=== PATIENT | male | born 1940 ===

== ENCOUNTER 2021-05-29 23:05 | Emergency (ER) | payer MEDICARE ==
[2021-05-30] MEDS: Ketorolac 30 MG/ML SDV IM ONE (00:05)
[2021-05-30] MEDS ORDERED: Sodium Chloride 0.9% 10 ML Syringe FLUSH PRN (01:30)
[2021-05-30] MEDS: Morphine 2 MG/ML SYRINGE IVPUSH ONE (03:20)
[2021-05-30] MEDS: Morphine 2 MG/ML SYRINGE IVPUSH PRN (08:00)
[2021-05-30] MEDS: Morphine 2 MG/ML SYRINGE ONE (08:02)
== END 2021-05-30 08:25 ==
LOC: LB.ED 23:05
DX: S72.141A Displaced intertrochanteric fracture of right femur, initial encounter for closed fracture (principal); E78.00 Pure hypercholesterolemia, unspecified; I10 Essential (primary) hypertension; M19.90 Unspecified osteoarthritis, unspecified site; E11.9 Type 2 diabetes mellitus without complications; Z79.82 Long term (current) use of aspirin; Z79.01 Long term (current) use of anticoagulants; Z79.84 Long term (current) use of oral hypoglycemic drugs; Z79.899 Other long term (current) drug therapy; Z20.822 Contact with and (suspected) exposure to COVID-19; W01.0XXA Fall on same level from slipping, tripping and stumbling without subsequent striking against object, initial encounter
CPT/HCPCS: 36415; 70450; 73502-RT; 80048; 81001; 85025; 85610; 93005; 96372; 96374; 96376; 99285-25; A0425; A0429; J1885; J2270; U0002

== ENCOUNTER 2021-06-02 10:32 | Inpatient (IN) | payer MEDICARE ==
[2021-06-02] MEDS ORDERED: Apixaban 2.5 MG Tab PO ONE (13:59)
[2021-06-02] MEDS ORDERED: Acetaminophen 325 MG Tab PO SCH (14:00)
[2021-06-02] MEDS: Tamsulosin 0.4 MG Cap.ER PO SCH (17:51)
[2021-06-02] MEDS: metFORMIN 500 MG Tab PO SCH (17:51)
[2021-06-02] MEDS: Acetaminophen 500 MG Tab PO SCH ×2 (17:51→21:17)
[2021-06-02] MEDS ORDERED: Acetaminophen 500 MG Tab ONE (17:51)
[2021-06-02] MEDS: Acetaminophen/oxyCODONE 325-5 MG Tab PO PRN (19:38)
[2021-06-02] MEDS: Donepezil 5 MG Tab PO SCH (19:40)
[2021-06-02] MEDS: Apixaban 2.5 MG Tab PO SCH (19:40)
[2021-06-02] MEDS: Brimonidine 0.2% Ophth Soln 5 ML Bottle EYEBOTH SCH (20:00)
[2021-06-02] MEDS: Latanoprost 0.005% Ophth Soln 2.5 ML Bottle EYEBOTH SCH (20:00)
[2021-06-02] MEDS ORDERED: Donepezil 10 MG Tab PO SCH (20:00)
[2021-06-03] MEDS: LORazepam 0.5 MG Tab PO PRN (01:02)
[2021-06-03] MEDS: Acetaminophen/oxyCODONE 325-5 MG Tab PO PRN ×2 (01:02→10:02)
[2021-06-03] MEDS: Acetaminophen 500 MG Tab PO SCH ×3 (06:16→21:12)
[2021-06-03] MEDS: atorvaSTATin 40 MG Tab PO SCH (07:42)
[2021-06-03] MEDS: Apixaban 2.5 MG Tab PO SCH ×2 (07:42→19:45)
[2021-06-03] MEDS: Pantoprazole 40 MG Tab.CR PO SCH (07:42)
[2021-06-03] MEDS: metFORMIN 500 MG Tab PO SCH ×2 (07:42→19:48)
[2021-06-03] MEDS: amLODIPine 10 MG Tab PO SCH (07:43)
[2021-06-03] MEDS: Furosemide 40 MG Tab PO SCH (07:43)
[2021-06-03] MEDS: Tamsulosin 0.4 MG Cap.ER PO SCH ×2 (07:43→19:45)
[2021-06-03] MEDS: Ascorbic Acid 500 MG Tab PO SCH (07:43)
[2021-06-03] MEDS: Brimonidine 0.2% Ophth Soln 5 ML Bottle EYEBOTH SCH ×2 (07:46→19:49)
[2021-06-03] MEDS ORDERED: Tamsulosin 0.4 MG Cap.ER PO SCH (10:00)
[2021-06-03] MEDS: traMADol 50 MG Tab PO PRN (15:45)
[2021-06-03] MEDS: Donepezil 5 MG Tab PO SCH (19:45)
[2021-06-03] MEDS: Latanoprost 0.005% Ophth Soln 2.5 ML Bottle EYEBOTH SCH (19:49)
[2021-06-04] MEDS: traMADol 50 MG Tab PO PRN ×3 (00:35→16:48)
[2021-06-04] MEDS: Acetaminophen 500 MG Tab PO SCH ×3 (06:03→20:18)
[2021-06-04] MEDS: Pantoprazole 40 MG Tab.CR PO SCH (06:04)
[2021-06-04] MEDS: amLODIPine 10 MG Tab PO SCH (08:05)
[2021-06-04] MEDS: Tamsulosin 0.4 MG Cap.ER PO SCH ×2 (08:05→18:20)
[2021-06-04] MEDS: atorvaSTATin 40 MG Tab PO SCH (08:05)
[2021-06-04] MEDS: Ascorbic Acid 500 MG Tab PO SCH (08:05)
[2021-06-04] MEDS: Apixaban 2.5 MG Tab PO SCH ×2 (08:06→20:04)
[2021-06-04] MEDS: metFORMIN 500 MG Tab PO SCH ×2 (08:06→16:49)
[2021-06-04] MEDS: Furosemide 40 MG Tab PO SCH (08:07)
[2021-06-04] MEDS: Brimonidine 0.2% Ophth Soln 5 ML Bottle EYEBOTH SCH ×2 (08:07→20:02)
[2021-06-04 10:29] LABS: HEMOGLOBIN A1C 9.3 % (< 5.7)
[2021-06-04] MEDS ORDERED: Acetaminophen 500 MG Tab ONE (12:29)
[2021-06-04] MEDS: Donepezil 5 MG Tab PO SCH (20:03)
[2021-06-04] MEDS: Acetaminophen/oxyCODONE 325-5 MG Tab PO PRN (20:04)
[2021-06-04] MEDS: Latanoprost 0.005% Ophth Soln 2.5 ML Bottle EYEBOTH SCH (20:08)
[2021-06-05] MEDS: Acetaminophen/oxyCODONE 325-5 MG Tab PO PRN ×3 (04:59→15:16)
[2021-06-05] MEDS: Acetaminophen 500 MG Tab PO SCH ×3 (05:01→20:15)
[2021-06-05] MEDS: Furosemide 40 MG Tab PO SCH (07:38)
[2021-06-05] MEDS: Ascorbic Acid 500 MG Tab PO SCH (07:38)
[2021-06-05] MEDS: atorvaSTATin 40 MG Tab PO SCH (07:38)
[2021-06-05] MEDS: amLODIPine 10 MG Tab PO SCH (07:38)
[2021-06-05] MEDS: Brimonidine 0.2% Ophth Soln 5 ML Bottle EYEBOTH SCH ×2 (07:38→20:17)
[2021-06-05] MEDS: Pantoprazole 40 MG Tab.CR PO SCH (07:39)
[2021-06-05] MEDS: metFORMIN 500 MG Tab PO SCH ×2 (07:39→17:58)
[2021-06-05] MEDS: Apixaban 2.5 MG Tab PO SCH ×2 (07:39→20:15)
[2021-06-05] MEDS: Tamsulosin 0.4 MG Cap.ER PO SCH ×2 (09:00→17:58)
[2021-06-05] MEDS: traMADol 50 MG Tab PO PRN (12:54)
[2021-06-05] MEDS: LORazepam 0.5 MG Tab PO PRN (12:54)
[2021-06-05] MEDS: Donepezil 5 MG Tab PO SCH (20:16)
[2021-06-05] MEDS: Latanoprost 0.005% Ophth Soln 2.5 ML Bottle EYEBOTH SCH (20:17)
[2021-06-06] MEDS: Acetaminophen/oxyCODONE 325-5 MG Tab PO PRN ×3 (01:43→18:18)
[2021-06-06] MEDS: LORazepam 0.5 MG Tab PO PRN ×2 (01:43→18:18)
[2021-06-06] MEDS: Pantoprazole 40 MG Tab.CR PO SCH (06:20)
[2021-06-06] MEDS: Acetaminophen 500 MG Tab PO SCH ×3 (06:20→21:00)
[2021-06-06] MEDS: traMADol 50 MG Tab PO PRN ×2 (07:36→17:26)
[2021-06-06] MEDS: Apixaban 2.5 MG Tab PO SCH ×2 (07:36→19:38)
[2021-06-06] MEDS: Ascorbic Acid 500 MG Tab PO SCH (07:36)
[2021-06-06] MEDS: atorvaSTATin 40 MG Tab PO SCH (07:37)
[2021-06-06] MEDS: Furosemide 40 MG Tab PO SCH (07:38)
[2021-06-06] MEDS: Brimonidine 0.2% Ophth Soln 5 ML Bottle EYEBOTH SCH ×2 (07:40→19:37)
[2021-06-06] MEDS: metFORMIN 500 MG Tab PO SCH ×2 (08:00→17:26)
[2021-06-06] MEDS: amLODIPine 10 MG Tab PO SCH (09:32)
[2021-06-06] MEDS: Tamsulosin 0.4 MG Cap.ER PO SCH ×2 (09:33→17:26)
[2021-06-06] MEDS: Donepezil 5 MG Tab PO SCH (19:38)
[2021-06-06] MEDS: Latanoprost 0.005% Ophth Soln 2.5 ML Bottle EYEBOTH SCH (19:39)
[2021-06-07] MEDS: traMADol 50 MG Tab PO PRN ×3 (00:03→17:32)
[2021-06-07] MEDS: Acetaminophen/oxyCODONE 325-5 MG Tab PO PRN ×3 (04:14→19:42)
[2021-06-07] MEDS: Acetaminophen 500 MG Tab PO SCH ×3 (04:16→21:02)
[2021-06-07] MEDS: amLODIPine 10 MG Tab PO SCH (08:18)
[2021-06-07] MEDS: metFORMIN 500 MG Tab PO SCH ×2 (08:18→17:31)
[2021-06-07] MEDS: Tamsulosin 0.4 MG Cap.ER PO SCH ×2 (08:19→17:31)
[2021-06-07] MEDS: Furosemide 40 MG Tab PO SCH (08:19)
[2021-06-07] MEDS: Apixaban 2.5 MG Tab PO SCH ×2 (08:20→19:41)
[2021-06-07] MEDS: atorvaSTATin 40 MG Tab PO SCH (08:20)
[2021-06-07] MEDS: Ascorbic Acid 500 MG Tab PO SCH (08:20)
[2021-06-07] MEDS: Pantoprazole 40 MG Tab.CR PO SCH (08:21)
[2021-06-07] MEDS: Brimonidine 0.2% Ophth Soln 5 ML Bottle EYEBOTH SCH ×2 (08:21→19:51)
[2021-06-07] MEDS: LORazepam 0.5 MG Tab PO PRN (11:06)
[2021-06-07] MEDS ORDERED: Tuberculin, PPD 5 Units/0.1 ML 1 ML MDV IDERM ONE (15:11)
[2021-06-07] MEDS: Donepezil 5 MG Tab PO SCH (19:40)
[2021-06-07] MEDS: Latanoprost 0.005% Ophth Soln 2.5 ML Bottle EYEBOTH SCH (19:52)
[2021-06-08] MEDS: Acetaminophen 500 MG Tab PO SCH ×3 (05:21→21:50)
[2021-06-08] MEDS: Acetaminophen/oxyCODONE 325-5 MG Tab PO PRN ×3 (05:22→19:23)
[2021-06-08] MEDS: Apixaban 2.5 MG Tab PO SCH ×2 (07:29→19:18)
[2021-06-08] MEDS: atorvaSTATin 40 MG Tab PO SCH (07:29)
[2021-06-08] MEDS: Furosemide 40 MG Tab PO SCH (07:29)
[2021-06-08] MEDS: Tamsulosin 0.4 MG Cap.ER PO SCH ×3 (07:30→17:31)
[2021-06-08] MEDS: metFORMIN 500 MG Tab PO SCH ×2 (07:30→17:25)
[2021-06-08] MEDS: amLODIPine 10 MG Tab PO SCH (07:30)
[2021-06-08] MEDS: Ascorbic Acid 500 MG Tab PO SCH (07:30)
[2021-06-08] MEDS: Pantoprazole 40 MG Tab.CR PO SCH (07:33)
[2021-06-08] MEDS: Brimonidine 0.2% Ophth Soln 5 ML Bottle EYEBOTH SCH ×2 (07:34→19:25)
[2021-06-08] MEDS: LORazepam 0.5 MG Tab PO PRN ×2 (14:37→21:49)
[2021-06-08] MEDS: Donepezil 5 MG Tab PO SCH (19:23)
[2021-06-08] MEDS: Latanoprost 0.005% Ophth Soln 2.5 ML Bottle EYEBOTH SCH (19:25)
[2021-06-08] MEDS: traMADol 50 MG Tab PO PRN (21:49)
[2021-06-09] MEDS: Acetaminophen 500 MG Tab PO SCH ×3 (04:05→20:27)
[2021-06-09] MEDS: Acetaminophen/oxyCODONE 325-5 MG Tab PO PRN ×3 (04:06→19:29)
[2021-06-09] MEDS: Furosemide 40 MG Tab PO SCH (07:59)
[2021-06-09] MEDS: Ascorbic Acid 500 MG Tab PO SCH (08:00)
[2021-06-09] MEDS: amLODIPine 10 MG Tab PO SCH (08:00)
[2021-06-09] MEDS: Pantoprazole 40 MG Tab.CR PO SCH (08:00)
[2021-06-09] MEDS: metFORMIN 500 MG Tab PO SCH ×2 (08:01→16:50)
[2021-06-09] MEDS: Tamsulosin 0.4 MG Cap.ER PO SCH ×2 (08:02→17:39)
[2021-06-09] MEDS: Apixaban 2.5 MG Tab PO SCH ×2 (08:03→19:28)
[2021-06-09] MEDS: atorvaSTATin 40 MG Tab PO SCH (08:03)
[2021-06-09] MEDS: traMADol 50 MG Tab PO PRN ×2 (09:42→16:51)
[2021-06-09] MEDS: Brimonidine 0.2% Ophth Soln 5 ML Bottle EYEBOTH SCH ×2 (09:51→19:27)
[2021-06-09] MEDS: metFORMIN 1,000 MG Tab PO SCH (16:53)
[2021-06-09] MEDS: Latanoprost 0.005% Ophth Soln 2.5 ML Bottle EYEBOTH SCH (19:27)
[2021-06-09] MEDS: Donepezil 5 MG Tab PO SCH (19:28)
[2021-06-09] MEDS: LORazepam 0.5 MG Tab PO PRN (19:29)
[2021-06-10] MEDS: Acetaminophen 500 MG Tab PO SCH ×3 (05:57→20:08)
[2021-06-10] MEDS: Acetaminophen/oxyCODONE 325-5 MG Tab PO PRN ×2 (05:58→19:44)
[2021-06-10] MEDS: Pantoprazole 40 MG Tab.CR PO SCH (05:59)
[2021-06-10] MEDS: Tamsulosin 0.4 MG Cap.ER PO SCH ×2 (08:50→17:21)
[2021-06-10] MEDS: amLODIPine 10 MG Tab PO SCH (08:50)
[2021-06-10] MEDS: metFORMIN 1,000 MG Tab PO SCH ×2 (08:50→17:21)
[2021-06-10] MEDS: atorvaSTATin 40 MG Tab PO SCH (08:50)
[2021-06-10] MEDS: Ascorbic Acid 500 MG Tab PO SCH (08:51)
[2021-06-10] MEDS: Furosemide 40 MG Tab PO SCH (08:51)
[2021-06-10] MEDS: Apixaban 2.5 MG Tab PO SCH ×2 (08:51→19:43)
[2021-06-10] MEDS: metFORMIN 500 MG Tab PO SCH ×2 (08:52→17:21)
[2021-06-10] MEDS: Brimonidine 0.2% Ophth Soln 5 ML Bottle EYEBOTH SCH ×2 (09:42→19:44)
[2021-06-10] MEDS: traMADol 50 MG Tab PO PRN (17:00)
[2021-06-10] MEDS: Latanoprost 0.005% Ophth Soln 2.5 ML Bottle EYEBOTH SCH (19:45)
[2021-06-10] MEDS: Donepezil 5 MG Tab PO SCH (19:47)
[2021-06-11] MEDS: traMADol 50 MG Tab PO PRN (02:56)
[2021-06-11] MEDS: LORazepam 0.5 MG Tab PO PRN ×2 (02:57→20:06)
[2021-06-11] MEDS: Acetaminophen 500 MG Tab PO SCH ×4 (05:59→20:03)
[2021-06-11] MEDS: Pantoprazole 40 MG Tab.CR PO SCH (06:22)
[2021-06-11] MEDS: amLODIPine 10 MG Tab PO SCH (08:17)
[2021-06-11] MEDS: Apixaban 2.5 MG Tab PO SCH ×2 (08:17→20:03)
[2021-06-11] MEDS: Tamsulosin 0.4 MG Cap.ER PO SCH ×2 (08:17→17:10)
[2021-06-11] MEDS: Furosemide 40 MG Tab PO SCH (08:17)
[2021-06-11] MEDS: metFORMIN 500 MG Tab PO SCH ×2 (08:17→16:55)
[2021-06-11] MEDS: metFORMIN 1,000 MG Tab PO SCH ×2 (08:18→16:55)
[2021-06-11] MEDS: Ascorbic Acid 500 MG Tab PO SCH (08:18)
[2021-06-11] MEDS: atorvaSTATin 40 MG Tab PO SCH (08:18)
[2021-06-11] MEDS: Brimonidine 0.2% Ophth Soln 5 ML Bottle EYEBOTH SCH ×2 (08:53→20:07)
[2021-06-11] MEDS: Acetaminophen/oxyCODONE 325-5 MG Tab PO PRN ×2 (08:54→20:06)
[2021-06-11] MEDS: Donepezil 5 MG Tab PO SCH (20:03)
[2021-06-11] MEDS: Latanoprost 0.005% Ophth Soln 2.5 ML Bottle EYEBOTH SCH (20:07)
[2021-06-12] MEDS: traMADol 50 MG Tab PO PRN (01:00)
[2021-06-12] MEDS: Acetaminophen/oxyCODONE 325-5 MG Tab PO PRN ×2 (03:08→11:23)
[2021-06-12] MEDS: Acetaminophen 500 MG Tab PO SCH ×3 (05:46→20:44)
[2021-06-12] MEDS ORDERED: Apixaban 5 MG Tab ONE (07:12)
[2021-06-12] MEDS: Pantoprazole 40 MG Tab.CR PO SCH (07:14)
[2021-06-12] MEDS: atorvaSTATin 40 MG Tab PO SCH (07:14)
[2021-06-12] MEDS: Furosemide 40 MG Tab PO SCH (07:14)
[2021-06-12] MEDS: Ascorbic Acid 500 MG Tab PO SCH (07:14)
[2021-06-12] MEDS: amLODIPine 10 MG Tab PO SCH (07:14)
[2021-06-12] MEDS: Apixaban 2.5 MG Tab PO SCH ×2 (07:15→19:27)
[2021-06-12] MEDS: metFORMIN 1,000 MG Tab PO SCH (10:51)
[2021-06-12] MEDS: Tamsulosin 0.4 MG Cap.ER PO SCH ×2 (10:51→17:17)
[2021-06-12] MEDS: metFORMIN 500 MG Tab PO SCH ×2 (10:51→17:17)
[2021-06-12] MEDS: Brimonidine 0.2% Ophth Soln 5 ML Bottle EYEBOTH SCH ×2 (11:23→19:26)
[2021-06-12] MEDS: Donepezil 5 MG Tab PO SCH (19:27)
[2021-06-12] MEDS: Latanoprost 0.005% Ophth Soln 2.5 ML Bottle EYEBOTH SCH (19:27)
[2021-06-13] MEDS: LORazepam 0.5 MG Tab PO PRN (00:13)
[2021-06-13] MEDS: Acetaminophen/oxyCODONE 325-5 MG Tab PO PRN ×3 (00:14→16:50)
[2021-06-13] MEDS: Acetaminophen 500 MG Tab PO SCH ×3 (04:21→20:26)
[2021-06-13] MEDS: Pantoprazole 40 MG Tab.CR PO SCH (06:50)
[2021-06-13] MEDS: atorvaSTATin 40 MG Tab PO SCH (07:59)
[2021-06-13] MEDS: Furosemide 40 MG Tab PO SCH (08:00)
[2021-06-13] MEDS: Ascorbic Acid 500 MG Tab PO SCH (08:00)
[2021-06-13] MEDS: Tamsulosin 0.4 MG Cap.ER PO SCH ×2 (08:01→17:02)
[2021-06-13] MEDS: metFORMIN 500 MG Tab PO SCH ×3 (08:21→17:02)
[2021-06-13] MEDS: Brimonidine 0.2% Ophth Soln 5 ML Bottle EYEBOTH SCH ×2 (08:22→19:25)
[2021-06-13] MEDS: amLODIPine 10 MG Tab PO SCH (08:22)
[2021-06-13] MEDS: Apixaban 2.5 MG Tab PO SCH ×2 (08:22→19:23)
[2021-06-13] MEDS: traMADol 50 MG Tab PO PRN (14:27)
[2021-06-13] MEDS ORDERED: Glucagon,Human Recombinant 1 MG Vial IM PRN (16:16)
[2021-06-13] MEDS ORDERED: 50% Dextrose in Water 50 ML Syringe IVPUSH PRN (16:16)
[2021-06-13] MEDS: Donepezil 5 MG Tab PO SCH (19:23)
[2021-06-13] MEDS: traZODone 100 MG Tab PO SCH (19:24)
[2021-06-13] MEDS: Latanoprost 0.005% Ophth Soln 2.5 ML Bottle EYEBOTH SCH (20:30)
[2021-06-13] MEDS: Insulin Regular, Human 100 Units/ML 3 ML Vial SUBCUT SCH (20:34)
[2021-06-14] MEDS: Acetaminophen 500 MG Tab PO SCH ×3 (05:26→20:01)
[2021-06-14] MEDS: Pantoprazole 40 MG Tab.CR PO SCH (06:03)
[2021-06-14] MEDS: Insulin Regular, Human 100 Units/ML 3 ML Vial SUBCUT SCH ×3 (08:38→17:13)
[2021-06-14] MEDS: Apixaban 2.5 MG Tab PO SCH ×2 (08:39→20:03)
[2021-06-14] MEDS: metFORMIN 500 MG Tab PO SCH ×3 (08:39→17:11)
[2021-06-14] MEDS: Ascorbic Acid 500 MG Tab PO SCH (08:39)
[2021-06-14] MEDS: Furosemide 40 MG Tab PO SCH (08:40)
[2021-06-14] MEDS: Tamsulosin 0.4 MG Cap.ER PO SCH ×2 (08:40→17:10)
[2021-06-14] MEDS: amLODIPine 10 MG Tab PO SCH (08:40)
[2021-06-14] MEDS: atorvaSTATin 40 MG Tab PO SCH (08:41)
[2021-06-14] MEDS: Brimonidine 0.2% Ophth Soln 5 ML Bottle EYEBOTH SCH ×2 (08:41→20:02)
[2021-06-14] MEDS: Donepezil 5 MG Tab PO SCH (20:01)
[2021-06-14] MEDS: traZODone 100 MG Tab PO SCH (20:01)
[2021-06-14] MEDS: Latanoprost 0.005% Ophth Soln 2.5 ML Bottle EYEBOTH SCH (20:01)
[2021-06-15] MEDS: Melatonin 3 MG Tab PO PRN ×2 (00:58→19:36)
[2021-06-15] MEDS: Acetaminophen/oxyCODONE 325-5 MG Tab PO PRN ×3 (00:58→19:38)
[2021-06-15] MEDS: Acetaminophen 500 MG Tab PO SCH ×3 (06:35→21:00)
[2021-06-15] MEDS: Furosemide 40 MG Tab PO SCH (08:01)
[2021-06-15] MEDS: Ascorbic Acid 500 MG Tab PO SCH (08:01)
[2021-06-15] MEDS: atorvaSTATin 40 MG Tab PO SCH (08:01)
[2021-06-15] MEDS: Pantoprazole 40 MG Tab.CR PO SCH (08:02)
[2021-06-15] MEDS: Tamsulosin 0.4 MG Cap.ER PO SCH ×2 (08:02→17:51)
[2021-06-15] MEDS: Apixaban 2.5 MG Tab PO SCH ×2 (08:02→19:36)
[2021-06-15] MEDS: amLODIPine 10 MG Tab PO SCH (08:04)
[2021-06-15] MEDS: metFORMIN 500 MG Tab PO SCH ×3 (08:04→17:50)
[2021-06-15] MEDS: Brimonidine 0.2% Ophth Soln 5 ML Bottle EYEBOTH SCH ×2 (08:06→19:35)
[2021-06-15] MEDS: Insulin Regular, Human 100 Units/ML 3 ML Vial SUBCUT SCH ×2 (08:06→17:07)
[2021-06-15] MEDS: traMADol 50 MG Tab PO PRN (14:35)
[2021-06-15] MEDS: Latanoprost 0.005% Ophth Soln 2.5 ML Bottle EYEBOTH SCH (19:35)
[2021-06-15] MEDS: Donepezil 5 MG Tab PO SCH (19:37)
[2021-06-15] MEDS: traZODone 100 MG Tab PO SCH (19:38)
[2021-06-16] MEDS: Acetaminophen 500 MG Tab PO SCH ×5 (05:00→20:04)
[2021-06-16] MEDS: Pantoprazole 40 MG Tab.CR PO SCH (06:31)
[2021-06-16] MEDS: Brimonidine 0.2% Ophth Soln 5 ML Bottle EYEBOTH SCH ×2 (08:03→20:03)
[2021-06-16] MEDS: Furosemide 40 MG Tab PO SCH (08:03)
[2021-06-16] MEDS: metFORMIN 500 MG Tab PO SCH ×3 (08:03→18:22)
[2021-06-16] MEDS: Ascorbic Acid 500 MG Tab PO SCH (08:04)
[2021-06-16] MEDS: amLODIPine 10 MG Tab PO SCH (08:04)
[2021-06-16] MEDS: Tamsulosin 0.4 MG Cap.ER PO SCH ×2 (08:04→18:24)
[2021-06-16] MEDS: Apixaban 2.5 MG Tab PO SCH ×2 (08:04→19:25)
[2021-06-16] MEDS: Insulin Regular, Human 100 Units/ML 3 ML Vial SUBCUT SCH ×2 (08:05→18:20)
[2021-06-16] MEDS: atorvaSTATin 40 MG Tab PO SCH (08:05)
[2021-06-16] MEDS: Acetaminophen/oxyCODONE 325-5 MG Tab PO PRN ×2 (10:55→19:25)
[2021-06-16] MEDS: traMADol 50 MG Tab PO PRN (13:27)
[2021-06-16] MEDS: Melatonin 3 MG Tab PO PRN (19:19)
[2021-06-16] MEDS: traZODone 100 MG Tab PO SCH (19:20)
[2021-06-16] MEDS: Donepezil 5 MG Tab PO SCH (19:22)
[2021-06-16] MEDS: Latanoprost 0.005% Ophth Soln 2.5 ML Bottle EYEBOTH SCH (20:01)
[2021-06-17] MEDS: Acetaminophen 500 MG Tab PO SCH ×3 (06:32→21:41)
[2021-06-17] MEDS: Pantoprazole 40 MG Tab.CR PO SCH (06:35)
[2021-06-17] MEDS: Furosemide 40 MG Tab PO SCH (08:17)
[2021-06-17] MEDS: Tamsulosin 0.4 MG Cap.ER PO SCH ×2 (08:17→17:16)
[2021-06-17] MEDS: metFORMIN 500 MG Tab PO SCH ×3 (08:17→17:17)
[2021-06-17] MEDS: atorvaSTATin 40 MG Tab PO SCH (08:17)
[2021-06-17] MEDS: Ascorbic Acid 500 MG Tab PO SCH (08:17)
[2021-06-17] MEDS: Apixaban 2.5 MG Tab PO SCH ×2 (08:17→19:49)
[2021-06-17] MEDS: Insulin Regular, Human 100 Units/ML 3 ML Vial SUBCUT SCH ×2 (08:18→17:14)
[2021-06-17] MEDS: amLODIPine 10 MG Tab PO SCH (08:20)
[2021-06-17] MEDS: Brimonidine 0.2% Ophth Soln 5 ML Bottle EYEBOTH SCH ×2 (08:20→19:50)
[2021-06-17] MEDS: Donepezil 5 MG Tab PO SCH (19:46)
[2021-06-17] MEDS: Acetaminophen/oxyCODONE 325-5 MG Tab PO PRN (19:46)
[2021-06-17] MEDS: traZODone 100 MG Tab PO SCH (19:48)
[2021-06-17] MEDS: Melatonin 3 MG Tab PO PRN (19:48)
[2021-06-17] MEDS: Latanoprost 0.005% Ophth Soln 2.5 ML Bottle EYEBOTH SCH (19:50)
[2021-06-18] MEDS: Acetaminophen 500 MG Tab PO SCH ×3 (05:44→21:00)
[2021-06-18] MEDS: Pantoprazole 40 MG Tab.CR PO SCH (07:38)
[2021-06-18] MEDS: amLODIPine 10 MG Tab PO SCH (07:40)
[2021-06-18] MEDS: Furosemide 40 MG Tab PO SCH (07:40)
[2021-06-18] MEDS: Apixaban 2.5 MG Tab PO SCH ×2 (07:41→19:29)
[2021-06-18] MEDS: metFORMIN 500 MG Tab PO SCH ×3 (07:42→17:08)
[2021-06-18] MEDS: atorvaSTATin 40 MG Tab PO SCH (07:43)
[2021-06-18] MEDS: Ascorbic Acid 500 MG Tab PO SCH (07:43)
[2021-06-18] MEDS: Acetaminophen/oxyCODONE 325-5 MG Tab PO PRN ×4 (07:44→19:50)
[2021-06-18] MEDS: Brimonidine 0.2% Ophth Soln 5 ML Bottle EYEBOTH SCH ×2 (07:44→19:23)
[2021-06-18] MEDS: Insulin Regular, Human 100 Units/ML 3 ML Vial SUBCUT SCH ×2 (07:54→17:07)
[2021-06-18] MEDS: Tamsulosin 0.4 MG Cap.ER PO SCH ×2 (09:00→17:08)
[2021-06-18] MEDS: Latanoprost 0.005% Ophth Soln 2.5 ML Bottle EYEBOTH SCH (19:23)
[2021-06-18] MEDS: Melatonin 3 MG Tab PO PRN (19:25)
[2021-06-18] MEDS: Donepezil 5 MG Tab PO SCH (19:26)
[2021-06-18] MEDS: traZODone 100 MG Tab PO SCH (19:30)
[2021-06-19] MEDS: Acetaminophen 500 MG Tab PO SCH ×3 (05:31→20:27)
[2021-06-19] MEDS ORDERED: Acetaminophen 500 MG Tab ONE (05:41)
[2021-06-19] MEDS: Pantoprazole 40 MG Tab.CR PO SCH (06:00)
[2021-06-19] MEDS: metFORMIN 500 MG Tab PO SCH ×3 (08:14→17:36)
[2021-06-19] MEDS: Apixaban 2.5 MG Tab PO SCH ×2 (08:14→20:27)
[2021-06-19] MEDS: amLODIPine 10 MG Tab PO SCH (08:14)
[2021-06-19] MEDS: Tamsulosin 0.4 MG Cap.ER PO SCH ×2 (08:14→17:36)
[2021-06-19] MEDS: atorvaSTATin 40 MG Tab PO SCH (08:15)
[2021-06-19] MEDS: Furosemide 40 MG Tab PO SCH (08:15)
[2021-06-19] MEDS: Brimonidine 0.2% Ophth Soln 5 ML Bottle EYEBOTH SCH ×2 (08:16→20:26)
[2021-06-19] MEDS: Insulin Regular, Human 100 Units/ML 3 ML Vial SUBCUT SCH ×2 (08:16→17:35)
[2021-06-19] MEDS: Ascorbic Acid 500 MG Tab PO SCH (12:18)
[2021-06-19] MEDS: Acetaminophen/oxyCODONE 325-5 MG Tab PO PRN (16:51)
[2021-06-19] MEDS: Latanoprost 0.005% Ophth Soln 2.5 ML Bottle EYEBOTH SCH (20:26)
[2021-06-19] MEDS: Donepezil 5 MG Tab PO SCH (20:27)
[2021-06-19] MEDS: Melatonin 3 MG Tab PO PRN (20:27)
[2021-06-19] MEDS: traZODone 100 MG Tab PO SCH (20:27)
[2021-06-20] MEDS: Acetaminophen/oxyCODONE 325-5 MG Tab PO PRN ×2 (02:30→19:48)
[2021-06-20] MEDS: Acetaminophen 500 MG Tab PO SCH ×3 (05:59→21:00)
[2021-06-20] MEDS: Pantoprazole 40 MG Tab.CR PO SCH (06:01)
[2021-06-20] MEDS: Brimonidine 0.2% Ophth Soln 5 ML Bottle EYEBOTH SCH ×2 (08:19→19:46)
[2021-06-20] MEDS: Tamsulosin 0.4 MG Cap.ER PO SCH ×2 (08:20→17:50)
[2021-06-20] MEDS: Insulin Regular, Human 100 Units/ML 3 ML Vial SUBCUT SCH ×2 (08:20→17:50)
[2021-06-20] MEDS: Furosemide 40 MG Tab PO SCH (08:20)
[2021-06-20] MEDS: amLODIPine 10 MG Tab PO SCH (08:21)
[2021-06-20] MEDS: Ascorbic Acid 500 MG Tab PO SCH (08:21)
[2021-06-20] MEDS: metFORMIN 500 MG Tab PO SCH ×3 (08:21→17:50)
[2021-06-20] MEDS: Apixaban 2.5 MG Tab PO SCH ×2 (08:21→19:48)
[2021-06-20] MEDS: atorvaSTATin 40 MG Tab PO SCH (08:21)
[2021-06-20] MEDS: Latanoprost 0.005% Ophth Soln 2.5 ML Bottle EYEBOTH SCH (19:45)
[2021-06-20] MEDS: Melatonin 3 MG Tab PO PRN (19:46)
[2021-06-20] MEDS: traZODone 100 MG Tab PO SCH (19:47)
[2021-06-20] MEDS: Donepezil 5 MG Tab PO SCH (19:48)
[2021-06-21] MEDS: Acetaminophen 500 MG Tab PO SCH ×3 (05:53→20:10)
[2021-06-21] MEDS: Pantoprazole 40 MG Tab.CR PO SCH (06:11)
[2021-06-21] MEDS: atorvaSTATin 40 MG Tab PO SCH (07:57)
[2021-06-21] MEDS: metFORMIN 500 MG Tab PO SCH ×3 (07:57→17:03)
[2021-06-21] MEDS: Apixaban 2.5 MG Tab PO SCH ×2 (07:57→19:16)
[2021-06-21] MEDS: Furosemide 40 MG Tab PO SCH (07:57)
[2021-06-21] MEDS: amLODIPine 10 MG Tab PO SCH (07:57)
[2021-06-21] MEDS: Insulin Regular, Human 100 Units/ML 3 ML Vial SUBCUT SCH ×2 (07:59→16:43)
[2021-06-21] MEDS: Brimonidine 0.2% Ophth Soln 5 ML Bottle EYEBOTH SCH ×2 (07:59→19:19)
[2021-06-21] MEDS: Ascorbic Acid 500 MG Tab PO SCH (07:59)
[2021-06-21] MEDS: Tamsulosin 0.4 MG Cap.ER PO SCH ×2 (08:04→17:03)
[2021-06-21] MEDS: Donepezil 5 MG Tab PO SCH (19:16)
[2021-06-21] MEDS: traZODone 100 MG Tab PO SCH (19:17)
[2021-06-21] MEDS: Acetaminophen/oxyCODONE 325-5 MG Tab PO PRN (19:17)
[2021-06-21] MEDS: Latanoprost 0.005% Ophth Soln 2.5 ML Bottle EYEBOTH SCH (19:19)
[2021-06-22] MEDS: Acetaminophen 500 MG Tab PO SCH ×4 (05:00→20:37)
[2021-06-22] MEDS: Ascorbic Acid 500 MG Tab PO SCH (08:06)
[2021-06-22] MEDS: metFORMIN 500 MG Tab PO SCH ×3 (08:07→17:08)
[2021-06-22] MEDS: Pantoprazole 40 MG Tab.CR PO SCH (08:09)
[2021-06-22] MEDS: Furosemide 40 MG Tab PO SCH (08:09)
[2021-06-22] MEDS: atorvaSTATin 40 MG Tab PO SCH (08:09)
[2021-06-22] MEDS: Tamsulosin 0.4 MG Cap.ER PO SCH ×2 (08:09→17:08)
[2021-06-22] MEDS: Apixaban 2.5 MG Tab PO SCH ×2 (08:09→19:48)
[2021-06-22] MEDS: Brimonidine 0.2% Ophth Soln 5 ML Bottle EYEBOTH SCH ×2 (08:10→19:51)
[2021-06-22] MEDS: amLODIPine 10 MG Tab PO SCH (08:49)
[2021-06-22] MEDS: Insulin Regular, Human 100 Units/ML 3 ML Vial SUBCUT SCH ×2 (08:53→16:56)
[2021-06-22] MEDS: traZODone 100 MG Tab PO SCH (19:47)
[2021-06-22] MEDS: Donepezil 5 MG Tab PO SCH (19:47)
[2021-06-22] MEDS: Acetaminophen/oxyCODONE 325-5 MG Tab PO PRN (19:52)
[2021-06-22] MEDS: Latanoprost 0.005% Ophth Soln 2.5 ML Bottle EYEBOTH SCH (19:52)
[2021-06-23] MEDS: Acetaminophen 500 MG Tab PO SCH ×3 (06:08→21:32)
[2021-06-23] MEDS: Pantoprazole 40 MG Tab.CR PO SCH (06:10)
[2021-06-23] MEDS: Brimonidine 0.2% Ophth Soln 5 ML Bottle EYEBOTH SCH ×2 (08:06→21:33)
[2021-06-23] MEDS: Insulin Regular, Human 100 Units/ML 3 ML Vial SUBCUT SCH ×3 (08:07→17:30)
[2021-06-23] MEDS: traMADol 50 MG Tab PO PRN (08:09)
[2021-06-23] MEDS: Ascorbic Acid 500 MG Tab PO SCH (08:09)
[2021-06-23] MEDS: metFORMIN 500 MG Tab PO SCH ×3 (08:10→17:32)
[2021-06-23] MEDS: Tamsulosin 0.4 MG Cap.ER PO SCH ×2 (08:10→17:31)
[2021-06-23] MEDS: atorvaSTATin 40 MG Tab PO SCH (08:11)
[2021-06-23] MEDS: amLODIPine 10 MG Tab PO SCH (08:11)
[2021-06-23] MEDS: Furosemide 40 MG Tab PO SCH (08:12)
[2021-06-23] MEDS: Apixaban 2.5 MG Tab PO SCH ×2 (08:13→21:33)
[2021-06-23] MEDS: Melatonin 3 MG Tab PO PRN (21:33)
[2021-06-23] MEDS: Donepezil 5 MG Tab PO SCH (21:33)
[2021-06-23] MEDS: Latanoprost 0.005% Ophth Soln 2.5 ML Bottle EYEBOTH SCH (21:33)
[2021-06-23] MEDS: traZODone 100 MG Tab PO SCH (21:34)
[2021-06-24] MEDS: Acetaminophen/oxyCODONE 325-5 MG Tab PO PRN (00:17)
[2021-06-24] MEDS: Acetaminophen 500 MG Tab PO SCH ×3 (05:30→20:22)
[2021-06-24] MEDS: Pantoprazole 40 MG Tab.CR PO SCH ×2 (05:30→07:21)
[2021-06-24] MEDS: Insulin Regular, Human 100 Units/ML 3 ML Vial SUBCUT SCH ×2 (07:35→18:10)
[2021-06-24] MEDS: Brimonidine 0.2% Ophth Soln 5 ML Bottle EYEBOTH SCH ×2 (07:36→20:21)
[2021-06-24] MEDS: metFORMIN 500 MG Tab PO SCH ×3 (07:40→18:12)
[2021-06-24] MEDS: Ascorbic Acid 500 MG Tab PO SCH (07:42)
[2021-06-24] MEDS: atorvaSTATin 40 MG Tab PO SCH (07:43)
[2021-06-24] MEDS: Furosemide 40 MG Tab PO SCH (07:43)
[2021-06-24] MEDS: Apixaban 2.5 MG Tab PO SCH ×2 (07:43→20:21)
[2021-06-24] MEDS: amLODIPine 10 MG Tab PO SCH (07:45)
[2021-06-24] MEDS: traMADol 50 MG Tab PO PRN ×2 (07:46→13:33)
[2021-06-24] MEDS: Tamsulosin 0.4 MG Cap.ER PO SCH ×2 (09:50→18:12)
[2021-06-24] MEDS: Donepezil 5 MG Tab PO SCH (20:21)
[2021-06-24] MEDS: Latanoprost 0.005% Ophth Soln 2.5 ML Bottle EYEBOTH SCH (20:23)
[2021-06-24] MEDS: traZODone 100 MG Tab PO SCH (20:23)
[2021-06-24] MEDS ORDERED: Ondansetron 4 MG Tab.DIS ONE (20:43)
[2021-06-24] MEDS ORDERED: Ondansetron 4 MG Tab.DIS PO ONE (20:45)
[2021-06-25] MEDS: Acetaminophen 500 MG Tab PO SCH ×3 (05:20→20:00)
[2021-06-25] MEDS: Pantoprazole 40 MG Tab.CR PO SCH (06:12)
[2021-06-25] MEDS: Brimonidine 0.2% Ophth Soln 5 ML Bottle EYEBOTH SCH ×2 (08:30→19:32)
[2021-06-25] MEDS: metFORMIN 500 MG Tab PO SCH ×3 (08:34→17:11)
[2021-06-25] MEDS: atorvaSTATin 40 MG Tab PO SCH (08:34)
[2021-06-25] MEDS: Ascorbic Acid 500 MG Tab PO SCH (08:34)
[2021-06-25] MEDS: amLODIPine 10 MG Tab PO SCH (08:35)
[2021-06-25] MEDS: Tamsulosin 0.4 MG Cap.ER PO SCH ×2 (08:35→17:11)
[2021-06-25] MEDS: Apixaban 2.5 MG Tab PO SCH ×2 (08:35→20:00)
[2021-06-25] MEDS: Furosemide 40 MG Tab PO SCH (08:35)
[2021-06-25] MEDS: Insulin Regular, Human 100 Units/ML 3 ML Vial SUBCUT SCH ×4 (08:42→17:12)
[2021-06-25] MEDS: traZODone 100 MG Tab PO SCH (19:59)
[2021-06-25] MEDS: Latanoprost 0.005% Ophth Soln 2.5 ML Bottle EYEBOTH SCH (20:00)
[2021-06-25] MEDS: Donepezil 5 MG Tab PO SCH (20:00)
[2021-06-25] MEDS: Melatonin 3 MG Tab PO PRN (20:00)
[2021-06-26] MEDS: Pantoprazole 40 MG Tab.CR PO SCH (06:20)
[2021-06-26] MEDS: Acetaminophen 500 MG Tab PO SCH ×2 (06:20→13:32)
[2021-06-26] MEDS ORDERED: metFORMIN 1,000 MG Tab ONE (08:08)
[2021-06-26] MEDS: Furosemide 40 MG Tab PO SCH (08:10)
[2021-06-26] MEDS: amLODIPine 10 MG Tab PO SCH (08:10)
[2021-06-26] MEDS: Apixaban 2.5 MG Tab PO SCH (08:43)
[2021-06-26] MEDS: Brimonidine 0.2% Ophth Soln 5 ML Bottle EYEBOTH SCH (08:43)
[2021-06-26] MEDS: metFORMIN 500 MG Tab PO SCH ×2 (08:44→13:39)
[2021-06-26] MEDS: atorvaSTATin 40 MG Tab PO SCH (08:44)
[2021-06-26] MEDS: Ascorbic Acid 500 MG Tab PO SCH (08:45)
[2021-06-26] MEDS: Tamsulosin 0.4 MG Cap.ER PO SCH ×2 (08:45→08:53)
[2021-06-26] MEDS: Insulin Regular, Human 100 Units/ML 3 ML Vial SUBCUT SCH ×2 (08:49→13:36)
[2021-06-26] MEDS: Acetaminophen/oxyCODONE 325-5 MG Tab PO PRN ×2 (13:32)
== END 2021-06-26 13:30 | DRG 561 ==
LOC: LB.MS 11:15
PROVIDERS: ADMIT Physician Assistant; ATTEND Physician Assistant
DX: S72.009D Fracture of unspecified part of neck of unspecified femur, subsequent encounter for closed fracture with routine healing (principal); H91.90 Unspecified hearing loss, unspecified ear; H54.7 Unspecified visual loss; E78.00 Pure hypercholesterolemia, unspecified; M19.90 Unspecified osteoarthritis, unspecified site; R53.1 Weakness; E11.9 Type 2 diabetes mellitus without complications; Z87.891 Personal history of nicotine dependence; Z79.82 Long term (current) use of aspirin; Z79.01 Long term (current) use of anticoagulants; Z79.84 Long term (current) use of oral hypoglycemic drugs; R73.9 Hyperglycemia, unspecified; Z20.822 Contact with and (suspected) exposure to COVID-19
CPT/HCPCS: 36415; 71045; 80048; 81001; 82947; 83036; 85025; 86580; 87070; 97110-GP; 97116-GP; 97161-GP; 97165-GO; 97530-GO; 97530-GP; 97535-GO; A9270-GY; J1815-GY; Q0162; U0002

== ENCOUNTER 2022-08-29 10:41 | Inpatient (IN) | payer MEDICARE, MEDICAID ==
[2022-08-29] MEDS ORDERED: Sodium Chloride 0.9% 1,000 ML IV ONE (11:27)
[2022-08-29] MEDS ORDERED: Ondansetron 4 MG/2 ML SDV IVPUSH ONE (11:28)
[2022-08-29] MEDS ORDERED: Nitroglycerin 0.4 MG Tab.SL SL ONE (11:57)
[2022-08-29] MEDS ORDERED: HYDROmorphone 2 MG/ML Syringe IVPUSH ONE (11:58)
[2022-08-29] MEDS ORDERED: cefTRIAXone 1 GM in Sodium Chloride 0.9% 50 ML IV ONE (12:06)
[2022-08-29] MEDS ORDERED: HYDROmorphone 2 MG/ML Syringe ONE (12:10)
[2022-08-29] MEDS ORDERED: Azithromycin 500 MG in Sodium Chloride 0.9% 250 ML IV ONE (12:10)
[2022-08-29] MEDS ORDERED: cefTRIAXone 1 GM Vial ONE (12:22)
[2022-08-29] MEDS ORDERED: ALUM HYDROX PO PRN (14:16)
[2022-08-29] MEDS ORDERED: MAG HYDROX PO PRN (14:16)
[2022-08-29] MEDS ORDERED: SIMETH PO PRN (14:16)
[2022-08-29] MEDS ORDERED: Acetaminophen 325 MG Tab PO PRN (15:59)
[2022-08-29] MEDS ORDERED: Albuterol/Ipratropium 3.0-0.5 MG/3 ML Neb Soln NEB PRN (16:00)
[2022-08-29] MEDS ORDERED: Aluminum Hydroxide/Magnesium Hydroxide/Simethicone Susp 30 ML Cup PO PRN (17:29)
[2022-08-29] MEDS ORDERED: TAMSULOSIN HCL 0.4 MG PO SCH (17:30)
[2022-08-29] MEDS: Tamsulosin 0.4 MG Cap.ER PO SCH (17:45)
[2022-08-29] MEDS: Insulin Glargine,Human Rec. Analog 100 Units/ML 3 ML Pen SUBCUT SCH (19:27)
[2022-08-29] MEDS: Donepezil 5 MG Tab PO SCH (19:28)
[2022-08-29] MEDS: metFORMIN 1,000 MG Tab PO SCH (19:28)
[2022-08-29] MEDS: atorvaSTATin 40 MG Tab PO SCH (19:28)
[2022-08-29] MEDS: traZODone 50 MG Tab PO SCH (19:29)
[2022-08-29] MEDS: Brimonidine 0.2% Ophth Soln 5 ML Bottle EYEBOTH SCH (19:29)
[2022-08-29] MEDS: Apixaban 2.5 MG Tab PO SCH (19:29)
[2022-08-29] MEDS: Latanoprost 0.005% Ophth Soln 2.5 ML Bottle EYEBOTH SCH (19:37)
[2022-08-29] MEDS ORDERED: Non-Formulary Medication 1 Each (Apixaban [Eliquis] 2.5 MG Tablet) PO SCH (20:00)
[2022-08-29] MEDS ORDERED: Non-Formulary Medication 1 Each (Insulin Detemir [Levemir Flexpen] 100 UNIT/ML Insuln.Pen) SQ SCH (20:00)
[2022-08-29] MEDS ORDERED: DONEPEZIL HCL 10 MG PO SCH (20:00)
[2022-08-29] MEDS ORDERED: Non-Formulary Medication 1 Each (Metformin [Glucophage] 500 MG Tablet) PO SCH (20:00)
[2022-08-29] MEDS ORDERED: TRAZODONE HCL 50 MG PO SCH (20:00)
[2022-08-29] MEDS ORDERED: BRIMONIDINE EYEBOTH SCH (20:00)
[2022-08-30] MEDS ORDERED: 50% Dextrose in Water 50 ML Syringe IVPUSH ONE (07:50)
[2022-08-30] MEDS: Pantoprazole 40 MG Tab.CR PO SCH (07:53)
[2022-08-30] MEDS: Apixaban 2.5 MG Tab PO SCH ×2 (07:53→21:02)
[2022-08-30] MEDS: Furosemide 40 MG Tab PO SCH ×2 (07:54→16:33)
[2022-08-30] MEDS: Azithromycin 250 MG Tab PO SCH (07:55)
[2022-08-30] MEDS ORDERED: Non-Formulary Medication 1 Each (Insulin Detemir [Levemir Flexpen] 100 UNIT/ML Insuln.Pen) SQ SCH (08:00)
[2022-08-30] MEDS ORDERED: FUROSEMIDE 20 MG PO SCH (08:00)
[2022-08-30] MEDS: Insulin Glargine,Human Rec. Analog 100 Units/ML 3 ML Pen SUBCUT SCH ×2 (08:06→21:03)
[2022-08-30] MEDS: Brimonidine 0.2% Ophth Soln 5 ML Bottle EYEBOTH SCH ×2 (08:07→21:04)
[2022-08-30] MEDS: Tamsulosin 0.4 MG Cap.ER PO SCH ×2 (08:14→16:33)
[2022-08-30] MEDS: metFORMIN 1,000 MG Tab PO SCH ×2 (09:05→21:05)
[2022-08-30] MEDS: cefTRIAXone 2 GM in Sodium Chloride 0.9% 50 ML IV SCH (09:11)
[2022-08-30] MEDS ORDERED: metFORMIN 500 MG Tab PO SCH (12:00)
[2022-08-30] MEDS ORDERED: Non-Formulary Medication 1 Each (Metformin [Glucophage] 500 MG Tablet) PO SCH (12:00)
[2022-08-30] MEDS ORDERED: Furosemide 40 MG Tab ONE (16:31)
[2022-08-30] MEDS: atorvaSTATin 40 MG Tab PO SCH (21:02)
[2022-08-30] MEDS: Donepezil 5 MG Tab PO SCH (21:02)
[2022-08-30] MEDS: traZODone 50 MG Tab PO SCH (21:03)
[2022-08-30] MEDS: Latanoprost 0.005% Ophth Soln 2.5 ML Bottle EYEBOTH SCH (21:05)
[2022-08-31] MEDS ORDERED: Pantoprazole 40 MG Tab.CR ONE (08:09)
[2022-08-31] MEDS: Apixaban 2.5 MG Tab PO SCH (08:12)
[2022-08-31] MEDS: Azithromycin 250 MG Tab PO SCH (08:12)
[2022-08-31] MEDS: Insulin Glargine,Human Rec. Analog 100 Units/ML 3 ML Pen SUBCUT SCH (08:12)
[2022-08-31] MEDS: metFORMIN 1,000 MG Tab PO SCH (08:12)
[2022-08-31] MEDS: Brimonidine 0.2% Ophth Soln 5 ML Bottle EYEBOTH SCH (08:13)
[2022-08-31] MEDS: Pantoprazole 40 MG Tab.CR PO SCH (08:13)
[2022-08-31] MEDS: Furosemide 40 MG Tab PO SCH (08:13)
[2022-08-31] MEDS ORDERED: Tamsulosin 0.4 MG Cap.ER ONE (08:16)
[2022-08-31] MEDS ORDERED: cefTRIAXone 2 GM Vial ONE (08:17)
[2022-08-31] MEDS: Tamsulosin 0.4 MG Cap.ER PO SCH (08:17)
[2022-08-31] MEDS: cefTRIAXone 2 GM in Sodium Chloride 0.9% 50 ML IV SCH (08:18)
[2022-08-31 08:20] VITALS: BP 148/60; PULSE 69
[2022-08-31] MEDS ORDERED: Insulin Glargine,Human Rec. Analog 100 Units/ML 3 ML Pen SUBCUT SCH (20:00)
== END 2022-08-31 10:48 | DRG 179 ==
LOC: LB.ED 10:41 → LB.MS 14:56
PROVIDERS: ADMIT Physician Assistant; ATTEND Physician Assistant
DX: J69.0 Pneumonitis due to inhalation of food and vomit (principal); J18.9 Pneumonia, unspecified organism; E86.0 Dehydration; I44.0 Atrioventricular block, first degree; Z66 Do not resuscitate; I45.10 Unspecified right bundle-branch block; Z20.822 Contact with and (suspected) exposure to COVID-19; H91.90 Unspecified hearing loss, unspecified ear; E11.9 Type 2 diabetes mellitus without complications; M19.90 Unspecified osteoarthritis, unspecified site; H40.9 Unspecified glaucoma; M81.0 Age-related osteoporosis without current pathological fracture; I10 Essential (primary) hypertension; E78.00 Pure hypercholesterolemia, unspecified; Z79.01 Long term (current) use of anticoagulants; Z79.84 Long term (current) use of oral hypoglycemic drugs; Z79.82 Long term (current) use of aspirin; Z79.899 Other long term (current) drug therapy
CPT/HCPCS: 36415; 71045; 71250; 80048; 80053; 82947; 83605; 83880; 84484; 85025; 93005; 93010; 96361; 96365; 96367; 96375; 99222; 99232; 99239; 99285; 99285-25; A9270-GY; J0456; J0696; J1170; J1815-GY; J2405; J3490; J7030; J7050; U0002